=== PATIENT | female | born 1995 | race Caucasian/White ===

== ENCOUNTER 2024-09-06 05:01 | Inpatient (IN) | payer MEDICAID ==
[2024-09-06] MEDS ORDERED: Carboprost Tromethamine 250 MCG/1 mL Vial IM PRN (06:04)
[2024-09-06] MEDS ORDERED: Water For Irrigation,Sterile 1,000 ML Container IRR PRN (06:04)
[2024-09-06] MEDS ORDERED: Ondansetron 4 MG/2 ML SDV IVPUSH PRN (06:04)
[2024-09-06] MEDS ORDERED: Misoprostol 200 MCG Tab PO PRN (06:04)
[2024-09-06] MEDS ORDERED: Methylergonovine 0.2 MG/1 ML Amp IM PRN ×2 (06:04→16:46)
[2024-09-06] MEDS ORDERED: Sodium Chloride 0.9% 2.5 ML Syringe FLUSH PRN (06:04)
[2024-09-06] MEDS ORDERED: Terbutaline 1 MG/ML SDV SUBCUT PRN (06:04)
[2024-09-06] MEDS ORDERED: Butorphanol 2 MG/ML SDV IVPUSH PRN (06:04)
[2024-09-06] MEDS ORDERED: Sodium Chloride 0.9% 10 ML Syringe FLUSH PRN (06:04)
[2024-09-06] MEDS ORDERED: Lidocaine 1% 50 ML MDV INJECT PRN (06:04)
[2024-09-06] MEDS ORDERED: Sodium Chloride 0.9% 20 ML SDV IV PRN (06:04)
[2024-09-06] MEDS ORDERED: Tranexamic Acid in NACL,ISO-OS 1,000 MG/100 ML Bag IV PRN (06:11)
[2024-09-06] MEDS ORDERED: Oxytocin/0.9 % Sodium Chloride 30 UNIT/500 ML BAG IV SCH (06:15)
[2024-09-06 06:51] LABS: HEMATOCRIT 34.4 % (37.0-47.0); HEMOGLOBIN 11.9 g/dL (12.0-16.0); MEAN CORPUSCULAR HEMOGLOBIN 31.6 pg (28.0-32.0); MEAN CORPUSCULAR HGB CONC 34.6 g/dL (32.0-36.0); MEAN CORPUSCULAR VOLUME 91.5 fL (83.0-99.0); MEAN PLATELET VOLUME 10.1 fL (9.4-12.3); PLATELET COUNT,PLT 207 K/uL (150-400); RED BLOOD CELL COUNT 3.76 M/uL (4.10-5.30); WHITE BLOOD CELL COUNT,WBC 11.93 K/uL (3.9-11.3)
[2024-09-06] MEDS: Lactated Ringers 1,000 ML IV SCH (06:53)
[2024-09-06] MEDS: Oxytocin/0.9 % Sodium Chloride 30 UNIT/500 ML BAG IV SCH (06:54)
[2024-09-06] MEDS ORDERED: Bupivacaine 0.5% 10 ML SDV ONE (10:30)
[2024-09-06] MEDS ORDERED: Phenylephrine HCl In 0.9% NaCl 1 MG/10 ML Syringe ONE (10:30)
[2024-09-06] MEDS: Ropivacaine HCl/PF 200 ML ONE (10:48)
[2024-09-06] MEDS ORDERED: Misoprostol 200 MCG Tab RECTAL PRN (16:46)
[2024-09-06] MEDS ORDERED: Lanolin 100% Cream 7 GM Tube TOP PRN (16:46)
[2024-09-06] MEDS ORDERED: Docusate Sodium 100 MG Cap PO PRN (16:46)
[2024-09-06] MEDS ORDERED: Benzocaine/Menthol 20%-0.5% Spray 78 GM Cannister TOP PRN (16:46)
[2024-09-06] MEDS ORDERED: Acetaminophen 500 MG Tab PO PRN (16:46)
[2024-09-06] MEDS ORDERED: Witch Hazel Medicated Pads 40/Jar TOP PRN (16:46)
[2024-09-06 17:06] LABS: PH,UMBILICAL ARTERIAL 7.397 (7.18-7.38); PH,UMBILICAL VENOUS 7.395 (7.25-7.45)
[2024-09-07] MEDS: Ibuprofen 800 MG Tab PO PRN (04:44)
[2024-09-07 05:49] LABS: HEMATOCRIT 31.1 % (37.0-47.0); HEMOGLOBIN 10.7 g/dL (12.0-16.0)
[2024-09-07] MEDS ORDERED: Prenatal Multivitamin with Calcium/Folic Acid/Iron Tab PO SCH (09:00)
== END 2024-09-07 19:00 | disposition home or self-care (01) | DRG 807 ==
LOC: MW.OB 05:01 → OBSVTOIN 16:30 → MW.OB 23:58
PROVIDERS: ADMIT Obstetrics & Gynecology; ATTEND Obstetrics & Gynecology
PROC: 10E0XZZ Delivery of Products of Conception, External Approach (ICD-10-PCS; principal; 2024-09-06)
PROC: 10907ZC Drainage of Amniotic Fluid, Therapeutic from Products of Conception, Via Natural or Artificial Opening (ICD-10-PCS; 2024-09-06)
PROC: 3E033VJ Introduction of Other Hormone into Peripheral Vein, Percutaneous Approach (ICD-10-PCS; 2024-09-06)
PROC: 3E0R3BZ Introduction of Anesthetic Agent into Spinal Canal, Percutaneous Approach (ICD-10-PCS; 2024-09-06)
PROC: 00HU33Z Insertion of Infusion Device into Spinal Canal, Percutaneous Approach (ICD-10-PCS; 2024-09-06)
DX: O98.32 Other infections with a predominantly sexual mode of transmission complicating childbirth (principal); Z37.0 Single live birth; O99.334 Smoking (tobacco) complicating childbirth; B00.9 Herpesviral infection, unspecified; Z3A.39 39 weeks gestation of pregnancy
CPT/HCPCS: 36415; 51702; 59025; 59409; 82803; 85014; 85018; 85027; 86592; 86850; 86900; 86901; A9270-GY; J0665; J2371; J2590; J2795; J7120